=== PATIENT | female | born 1995 | race Caucasian/White ===

== ENCOUNTER → 2024-02-04 06:35 | Day surgery (SDC) | payer OTHER, SELFPAY | LOC: GI 06:35 | PROVIDERS: ATTENDING PHYSICIAN Internal Medicine Gastroenterology | DX: Z12.11 Encounter for screening for malignant neoplasm of colon (principal); K64.8 Other hemorrhoids; Z86.010 Personal history of colon polyps; Z83.710 Family history of adenomatous and serrated polyps | CPT/HCPCS: 45378 ==

== ENCOUNTER → 2024-09-28 13:52 | Outpatient (REF) | payer OTHER, SELFPAY | LOC: WDC 13:52 | PROVIDERS: ATTENDING PHYSICIAN Physician Assistant Medical | DX: R59.1 Generalized enlarged lymph nodes (principal); N64.59 Other signs and symptoms in breast | CPT/HCPCS: 76642 ==